=== PATIENT | male | born 1980 | race Caucasian/White ===

== ENCOUNTER 2019-10-11 02:24 | Emergency (ER) | payer OTHER ==
[2019-10-11] MEDS ORDERED: Meclizine HCl 25 MG TAB ONE (02:42)
== END 2019-10-11 02:50 | disposition home or self-care (01) ==
LOC: BURERS 02:24
DX: R42 Dizziness and giddiness (principal); F41.9 Anxiety disorder, unspecified; F32.9 Major depressive disorder, single episode, unspecified; Z87.891 Personal history of nicotine dependence
CPT/HCPCS: 99283